=== PATIENT | female | born 1990 | race Caucasian/White ===

== ENCOUNTER 2016-09-24 16:05 | Emergency (ER) | payer MEDICAID ==
[~2016-09-24 16:05] MED LIST: ZOFR4TAB3 PO; ZOFR4TAB3 SL
[2016-09-24 16:07] VITALS: BP 138/71; PULSE 100; RESP 16; TEMP 97.6; O2SAT 99
--- NOTE | 2016-09-24 17:39 | PD ---
HPI Chief Complaint: Skin Problem Time Seen by Provider: 17:31 Travel History International Travel<30 days: No Contact w/Intl Traveler<30days: No Traveled to known affect area: No History of Present Illness HPI 26-year-old Afro-[place] female presents the emergency department with question of scabies. Patient works as a [employer] or the having outbreak at the local group home. She has several skin lesions on her neck and lower extremities which are suspicious and she is worried. She has no known drug allergies. PFSH Past Medical History Diminished Hearing: No ?: Not LMP: 09/17/16 Social History Alcohol Use: No Tobacco Use: No Substance Use: No Allergies-Medications (Allergen,Severity, Reaction): Coded Allergies: No Known Allergies (Unverified , 01/16/15) Reported Meds & Prescriptions Reported Meds & Active Scripts Active Zofran ODT (Ondansetron HCl) 4 Mg Tab 4 Mg SL Q6H PRN 10 Days FOR NAUSEA/VOMITING Reported Zofran ODT (Ondansetron HCl) 4 Mg Tab 4 Mg PO Q6HR Review of Systems Except as stated in HPI: all other systems reviewed are Neg General / Constitutional: No: Fever Eyes: No: Visual changes HENT: No: Headaches Cardiovascular: No: Chest Pain or Discomfort Respiratory: No: Shortness of Breath Gastrointestinal: No: Abdominal Pain Genitourinary: No: Dysuria Musculoskeletal: No: Pain Skin: Positive Itching, Positive Lesions (see history of present illness), No Rash Neurologic: No: Weakness Psychiatric: No: Depression Endocrine: No: Polydipsia Hematologic/Lymphatic: No: Easy Bruising Physical Exam Narrative GENERAL: Patient appears in no acute distress. SKIN: Warm and dry. Normal color. Normal turgor. Patient is several erythematous raised lesions to both ankles and one on the left upper arm, and 1 at the base of the right neck, that appear more likely to be an insect bite as opposed to scabies. Patient has no lesions along the bra line or about line. HEAD: Atraumatic. Normocephalic. EYES: Pupils equal and round. No scleral icterus. No injection or drainage. ENT: No nasal bleeding or discharge. Mucous membranes pink and moist. Pharynx is normal. NECK: Trachea midline. No JVD. CARDIOVASCULAR: Regular rate and rhythm. RESPIRATORY: No accessory muscle use. MUSCULOSKELETAL: Extremities without clubbing, cyanosis, or edema. No obvious deformities. NEUROLOGICAL: Awake and alert. No obvious cranial nerve deficits. Motor grossly within normal limits. Five out of 5 muscle strength in the arms and legs. Normal speech. PSYCHIATRIC: Appropriate mood and affect; insight and judgment normal. Data Data Last Documented VS Vital Signs Date Time Temp Pulse Resp B/P Pulse Ox O2 Delivery O2 Flow Rate FiO2 09/24/16 16:07 97.6 100 16 138/71 99 Room Air MDM Medical Decision Making Medical Screen Exam Complete: Yes Emergency Medical Condition: Yes Differential Diagnosis Insect bites. Scabies exposure. Possible scabies. Narrative Course Patient is medically stable at time of exam. Patient not felt to have scabies, but will be treated as she has been exposed. Patient is given ivermectin lotion as directed. Patient should follow with her primary care physician if symptoms do not improve or worsen. Diagnosis Primary Impression: Scabies exposure Patient Instructions: General Instructions, Scabies (ED) Med/Other Pt SpecificInfo: Prescription(s) given Disposition: 01 DISCHARGE HOME Condition: Stable Tim Meehan Sep 24, 2016 17:38
[2016-09-24] MEDS ORDERED: IVER0.5L TOPICAL (17:40)
== END 2016-09-24 17:50 | disposition home or self-care (01) ==
LOC: NEPB 16:05
DX: L98.9 Disorder of the skin and subcutaneous tissue, unspecified (principal); Z20.7 Contact with and (suspected) exposure to pediculosis, acariasis and other infestations
CPT/HCPCS: 99283

== ENCOUNTER 2016-11-23 23:12 | Emergency (ER) | payer MEDICAID ==
[~2016-11-23] VITALS: Ht 170.2 cm; Wt 65.0 kg
[~2016-11-23 23:12] MED LIST changes: +IVER0.5L TOPICAL
[2016-11-23 23:14] VITALS: BP 125/78; PULSE 78; RESP 16; TEMP 98.5; O2SAT 99
[2016-11-24] MEDS ORDERED: ZOFR4TAB3 SL (00:12)
--- NOTE | 2016-11-24 00:13 | PD ---
HPI Chief Complaint: GI Complaint Time Seen by Provider: 00:00 Travel History International Travel<30 days: No Contact w/Intl Traveler<30days: No Traveled to known affect area: No History of Present Illness HPI Patient is a 26 year old female who presents to ER with c/o of nausea and vomiting for the past 2 days. Patient reports that she has not been feeling well for the past 2 days and has been feeling nauseas and has been vomiting. Reports that she went to work today and felt sick so she decided to come to the ER for evaluation. 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 Denies fever/chills. Denies abdominal pain/ cramping. Denies diarrhea. Patient with no other complaints at this time. PFSH Past Medical History Medical History: Denies Significant Hx Diminished Hearing: No Tetanus Vaccination: < 5 Years Influenza Vaccination: No ?: Not LMP: 10/26/16 : 2 Para: 2 Past Surgical History Surgical History: No Previous Surgery Social History Alcohol Use: No Tobacco Use: No Substance Use: No Allergies-Medications (Allergen,Severity, Reaction): Coded Allergies: No Known Allergies (Unverified , 01/16/15) Reported Meds & Prescriptions Reported Meds & Active Scripts Active Zofran Odt (Ondansetron Odt) 4 Mg Tab 4 Mg SL Q6HR PRN Review of Systems General / Constitutional: No: Fever, Chills Eyes: No: Visual changes HENT: No: Headaches Cardiovascular: No: Chest Pain or Discomfort Respiratory: No: Shortness of Breath Gastrointestinal: Positive: Nausea, Vomiting, No: Diarrhea, Abdominal Pain, Constipation Genitourinary: No: Dysuria Musculoskeletal: No: Pain Skin: No Rash Neurologic: No: Weakness Psychiatric: No: Depression Endocrine: No: Polydipsia Hematologic/Lymphatic: No: Easy Bruising Physical Exam Narrative GENERAL: nad, nontoxic SKIN: Focused skin assessment warm/dry. HEAD: Atraumatic. Normocephalic. EYES: Pupils equal and round. No scleral icterus. No injection or drainage. ENT: No nasal bleeding or discharge. Mucous membranes pink and moist. NECK: Trachea midline. No JVD. CARDIOVASCULAR: Regular rate and rhythm. No murmur appreciated. RESPIRATORY: No accessory muscle use. Clear to auscultation. Breath sounds equal bilaterally. GASTROINTESTINAL: Abdomen soft, non-tender, nondistended. Hepatic and splenic margins not palpable. MUSCULOSKELETAL: No obvious deformities. No clubbing. No cyanosis. No edema. NEUROLOGICAL: Awake and alert. No obvious cranial nerve deficits. Motor grossly within normal limits. Normal speech. PSYCHIATRIC: Appropriate mood and affect; insight and judgment normal. Data Data Last Documented VS Vital Signs Date Time Temp Pulse Resp B/P Pulse Ox O2 Delivery O2 Flow Rate FiO2 11/23/16 23:57 18 11/23/16 23:14 98.5 78 125/78 99 Orders Urinalysis - C+S If Indicated (11/24/16 00:01) Ed Urine Pregnancytest Poc (11/24/16 00:01) Ondansetron Odt (Zofran Odt) (11/24/16 00:15) Labs Laboratory Tests Test 11/24/16 00:23 Urine Color YELLOW Urine Turbidity CLEAR Urine pH 6.0 Urine Specific [place] 1.015 Urine Protein NEG mg/dL Urine Glucose (UA) NEG mg/dL Urine Ketones NEG mg/dL Urine Occult Blood NEG Urine Nitrite NEG Urine Bilirubin NEG Urine Urobilinogen LESS THAN 2.0 MG/DL Urine Leukocyte Esterase NEG Urine RBC LESS THAN 1 /hpf Urine WBC LESS THAN 1 /hpf Urine Squamous Epithelial 4 /hpf Cells Urine Mucus FEW /lpf Microscopic Urinalysis Comment CULT NOT INDICATED MDM Medical Decision Making Medical Screen Exam Complete: Yes Emergency Medical Condition: Yes Interpretation(s) Vital Signs Date Time Temp Pulse Resp B/P Pulse Ox O2 Delivery O2 Flow Rate FiO2 11/23/16 23:57 18 11/23/16 23:14 98.5 78 16 125/78 99 Differential Diagnosis Electrolyte abnormality, , UTI Narrative Course Patient is a 26-year-old female who presents to emergency room with complaints of nausea and vomiting for the past 2 days. Patient reports that she went to work tonight and was not feeling well and vomited at work, reports that she was sent to emergency for evaluation. Patient nontoxic while in the emergency room. Vital Signs Date Time Temp Pulse Resp B/P Pulse Ox O2 Delivery O2 Flow Rate FiO2 11/23/16 23:57 18 11/23/16 23:14 98.5 78 16 125/78 99 Abdomen is soft, nontender, nondistended, no peritoneal signs. Patient refusing blood work at this time, requesting oral medications for nausea. Plan to give Zofran ODT, if patient can tolerate this, will send patient home with prescription for Zofran. Signs and symptoms of acute abdomen was reviewed with patient. She will return to emergency room as needed. Laboratory Tests Test 11/24/16 00:23 Urine Color YELLOW (YELLW/STRAW) Urine Turbidity CLEAR (CLEAR) Urine pH 6.0 (5.0-8.5) Urine Specific [place] 1.015 (1.002-1.035) Urine Protein NEG mg/dL (NEG-TRACE) Urine Glucose (UA) NEG mg/dL (NEG) Urine Ketones NEG mg/dL (NEG) Urine Occult Blood NEG (NEG) Urine Nitrite NEG (NEG) Urine Bilirubin NEG (NEG) Urine Urobilinogen LESS THAN 2.0 MG/DL (LESS THAN 2.0) Urine Leukocyte Esterase NEG (NEG) Urine RBC LESS THAN 1 /hpf (0-3) Urine WBC LESS THAN 1 /hpf (0-5) Urine Squamous Epithelial 4 /hpf (0-5) Cells Urine Mucus FEW /lpf (OCC) Microscopic Urinalysis Comment CULT NOT INDICATED Patient re-evaluated, patient feeling much better. Abdomen is soft, nd/nt, no peritoneal signs. Patient requesting be discharged home. Signs and symptoms of acute abdomen was reviewed with patient, she will return to emergency room as needed Diagnosis Primary Impression: Nausea & vomiting Qualified Code: R11.2 - Non-intractable vomiting with nausea, unspecified vomiting type Patient Instructions: General Instructions Departure Forms: Tests/Procedures, Work Release Enter return to work date: November 26, 2016 Additional Instructions: Please return to ER as needed Please follow up with your primary care doctor in 2-3 days Return to ER if symptoms worsen or progress Med/Other Pt SpecificInfo: Prescription(s) given Scripts Ondansetron Odt (Zofran Odt)4 Mg Tab4 Mg SL Q6HR PRN (Nausea/Vomiting) #30 TAB Ref 0 Prov:Cathie Obrien DO 11/24/16 Disposition: 01 DISCHARGE HOME Condition: Stable Cathie Obrien DO November 24, 2016 00:13
[2016-11-24] MEDS ORDERED: ONDANSETRON ODT 4 MG TAB PO ONE (00:15)
[2016-11-24 00:34] LABS: BLOOD, URINE NEG (NEG); GLUCOSE,URINE NEG (NEG); KETONE, URINE NEG (NEG); MUCUS URINE FEW /lpf (OCC); NITRITE,URINE NEG (NEG); SQUAMOUS EPITHELIAL CELL URINE 4 /hpf (0-5); URINE COLOR YELLOW (YELLW/STRAW)
[2016-11-24 00:35] LABS: COMMENT (UR) CULT NOT INDICATED; CULTURE IF INDICATED CULT NOT INDICATED
[2016-11-24 00:52] VITALS: BP 115/65; PULSE 55; RESP 18; TEMP 98.1; O2SAT 100
== END 2016-11-24 00:53 | disposition home or self-care (01) ==
LOC: NEPD 23:12
DX: R11.2 Nausea with vomiting, unspecified (principal)
CPT/HCPCS: 81001; 84703; 99283